=== PATIENT | female | born 1945 | race Caucasian/White ===

== ENCOUNTER 2017-06-28 11:31 | Emergency (ER) | payer MEDICARE, MEDICAID ==
[~2017-06-28 11:31] MED LIST: ATEN-102 PO; LORTA5 PO; QUIN20 PO; SERT50 PO
[2017-06-28 11:33] VITALS: BP 143/71; PULSE 66; RESP 14; TEMP 97.8; O2SAT 98
--- NOTE | 2017-06-28 11:55 | PD ---
HPI Chief Complaint: Pain: Acute or Chronic Time Seen by Provider: 11:50 Travel History International Travel<30 days: No Contact w/Intl Traveler<30days: No Traveled to known affect area: No History of Present Illness HPI Patient comes in complaining of right lateral knee pain ongoing for several weeks. Patient denies any trauma. Patient describes pain as a sharp burning pain that comes and goes. Patient states she has pain when she drives. Pain improves with rest. Denies any radiation of the pain. Denies any fever, weight loss, or previous episodes like this. PFSH Past Medical History Depression: Yes Cancer: No Cardiovascular Problems: Yes (htn; CAD) Diabetes: No Diminished Hearing: Yes (RIGHT EAR) Endocrine: No Genitourinary: No Hepatitis: No Hiatal Hernia: No Hypertension: Yes Immune Disorder: Yes (LAMELLAR ICHYTHOSIS) Musculoskeletal: Yes (ARTHRITIS) Neurologic: No Psychiatric: Yes (PT TAKING ZOLOFT) Reproductive: No Respiratory: No Integumentary: Yes (LAMELLAR ITCHYTHOSIS) Immunizations Current: Yes Thyroid Disease: No Past Surgical History AICD: No Body Medical Devices: PIN X 1 LEFT FOOT Section: Yes (X2) Eye Surgery: Yes (BILATERAL CATARACT SX) Gynecologic Surgery: Yes ( X 2; HYSTERECTOMY PETERSON S&O) Hysterectomy: Yes Joint Replacement: No Oral Surgery: Yes (T&A) Pacemaker: No Other Surgery: Yes (PETERSON FEET X 2 EACH) Social History Alcohol Use: Yes (OCC) Tobacco Use: No Substance Use: No Allergies-Medications (Allergen,Severity, Reaction): Coded Allergies: Sulfa (Sulfonamide Antibiotics) (Unverified Allergy, Intermediate, Rash, ) codeine (Unverified Allergy, Mild, Rash, 02/15/17) NAUSEA ; SEVERE REACTION Reported Meds & Prescriptions Reported Meds & Active Scripts Active Lortab 5/325 Tab (Hydrocodone-Acetaminophen) 1 Tab Tab 1-2 Tab PO Q6 PRN Accupril (Quinapril HCl) 20 Mg Tab 20 Mg PO DAILY Reported Atenolol 50 Mg Tab 75 Mg PO DAILY Zoloft (Sertraline HCl) 50 Mg Tab 50 Mg PO DAILY Review of Systems Except as stated in HPI: all other systems reviewed are Neg Physical Exam Narrative GENERAL: Well-developed, overly nourished, in no acute distress, and non-ill appearing. SKIN: Focused skin assessment warm and dry. HEAD: Atraumatic. Normocephalic. EYES: Pupils equal and round. EOMI. No scleral icterus. No injection or drainage. ENT: No nasal bleeding or discharge. Mucous membranes pink and moist. NECK: Trachea midline. Supple. No nuclear rigidity. CARDIOVASCULAR: Dorsal pulses 2+, intact, and equal bilaterally. RESPIRATORY: No accessory muscle use. No respiratory distress. MUSCULOSKELETAL: No obvious deformities. No clubbing. No cyanosis. No edema. Full range of motion.Knee: Negative patellar apprehension, varus and valgus maneuvers, anterior draw test, and Yifan test. Pulses equal BL distal to injury. Capillary refill less than 2 seconds distal to injury and equal BL. FROM distal to injury and equal BL. Strength distal to injury equal BL. NV intact distal to injury. Dorsal pulses equal BL. Sensation equal BL 1st web space. Patient reports tenderness to palpation over lateral aspect of right knee. There is no crepitus, erythematous, induration, fluctuation, or lesions noted. NEUROLOGICAL: Awake and alert. No obvious cranial nerve deficits. Motor grossly within normal limits. Normal speech. PSYCHIATRIC: Appropriate mood and affect; insight and judgment normal. Data Data Last Documented VS Vital Signs Date Time Temp Pulse Resp B/P (MAP) Pulse Ox O2 Delivery O2 Flow Rate FiO2 06/28/17 11:59 06/28/17 11:33 97.8 66 14 98 Orders Orders Ed Discharge Order (06/28/17 11:50) Splint Or Brace Apply/Monitor (06/28/17 11:50) MDM Medical Decision Making Medical Screen Exam Complete: Yes Emergency Medical Condition: Yes Differential Diagnosis Fracture, strain, contusion, dislocation Narrative Course Patient in no obvious distress upon re-evaluation. Patient was placed in Harpreet wrap and noted improvement of her symptoms. Any questions/concerns in reference to patient diagnosis/condition discussed and clarified prior to patient's discharge. Reinforced sheer importance of close follow up with patient's primary physician or primary care clinic. Instructed patient to return to ED immediately, if symptoms return/worsen. Patient showed understanding of above instructions. Further instructions and recommendations were detailed in discharge paperwork. Patient ambulated without difficulty out of ED at discharge. Diagnosis Primary Impression: Right knee pain Qualified Codes: M25.561 - Pain in right knee Referrals: [facility] Patient Instructions: General Instructions, Knee Exercises (GEN), Knee Pain (ED ) Additional Instructions: Follow-up with your primary care physician and/or orthopedics in 3-5 days for reevaluation. Use [id number] Tylenol as needed for pain. Follow instructions on the packaging. Apply ice to affected area 20 minutes per hour as needed for pain. Wear Harpreet wrap as needed for comfort. Return to the emergency department if symptoms get worse. Disposition: 01 DISCHARGE HOME Condition: Stable Donte Sanon Jun 28, 2017 11:55
== END 2017-06-28 12:00 | disposition home or self-care (01) ==
LOC: NEPK 11:31
DX: M25.561 Pain in right knee (principal); I10 Essential (primary) hypertension; F32.9 Major depressive disorder, single episode, unspecified
CPT/HCPCS: 99282